=== PATIENT | female | born 2000 | race Caucasian/White ===

== ENCOUNTER 2024-07-19 03:18 | Emergency (ER) | payer OTHER ==
[~2024-07-19] VITALS: Ht 157.5 cm; Wt 129.6 kg
[2024-07-19 03:48] VITALS: O2SAT 98
[2024-07-19 03:51] LABS: HEMATOCRIT. 42.3 % (36.0-48.0); HEMOGLOBIN. 13.9 g/dL (12.0-16.0); MEAN CORPUSCULAR HEMOGLOBIN 28.5 pg (28.0-32.0); MEAN CORPUSCULAR HGB CONC 32.9 g/dL (31.0-37.0); MEAN CORPUSCULAR VOLUME 86.7 fL (81.0-99.0); MEAN PLATELET VOLUME 10.4 fl (7.4-10.4); PLATELET 348 x1000/uL (130-400); RED BLOOD CELL COUNT 4.88 mill/uL (4.2-5.4); RED CELL DISTRIBUTION WIDTH 13.8 % (11.6-14.6); WHITE BLOOD COUNT 14.3 x1000/uL (4.5-11.0)
[2024-07-19] MEDS: SODIUM CHLORIDE 0.9% 1,000 ML IV ONE (03:53)
[2024-07-19] MEDS: METOCLOPRAMIDE HCL 10MG/2ML VIAL IV ONE (03:53)
[2024-07-19] MEDS: DIPHENHYDRAMINE 50MG/ML VIAL IV ONE (03:53)
[2024-07-19] MEDS: ACETAMINOPHEN 1000MG/100ML 100 ML IV ONE (03:57)
[2024-07-19 03:59] LABS: CHLORIDE 107 mEq/L (98-107); SODIUM 139 mEq/L (136-145)
[2024-07-19 04:00] LABS: CALCIUM 9.2 mg/dL (8.7-10.4); CARBON DIOXIDE 26 mEq/L (21-32)
[2024-07-19 04:05] LABS: CREATININE 0.6 mg/dL (0.6-1.0); GLUCOSE 162 mg/dL (70-105); UREA NITROGEN BLOOD 8 mg/dL (9-23)
[2024-07-19 04:07] LABS: ALANINE AMINOTRANSFERASE 259 IU/L (10-49); ALBUMIN 4.3 g/dL (3.2-4.8); ASPARTATE AMINOTRANSFERASE 312 IU/L (<34); BILIRUBIN DIRECT 1.7 mg/dL (<=3.0); BILIRUBIN TOTAL 2.6 mg/dL (0.1-1.0)
[2024-07-19 04:08] LABS: PROTEIN TOTAL 7.4 g/dL (6.0-8.3)
[2024-07-19 04:17] LABS: ETHANOL BLOOD < 10 mg/dL (<10)
[2024-07-19 04:22] LABS: DIFFERENTIAL COMMENT 1
[2024-07-19 04:33] LABS: INR 0.9; PROTHROMBIN TIME 10.5 sec (9.6-11.0)
[2024-07-19] MEDS: MORPHINE SULFATE 4 MG/ML INJ (FOR IV/IM USE) IV ONE ×2 (05:05→10:36)
[2024-07-19] MEDS: SODIUM CHLORIDE 0.9% (SEPSIS BOLUS) IV ONE (05:43)
[2024-07-19 05:53] LABS: CLARITY URINE CLOUDY (CLEAR); COLOR URINE DARK YELLOW (YELLOW); GLUCOSE URINE NEGATIVE (NEGATIVE); KETONES URINE 2+ (NEGATIVE); LEUKOCYTE ESTERASE URINE TRACE (NEGATIVE); NITRITE URINE NEGATIVE (NEGATIVE); OCCULT BLOOD URINE NEGATIVE (NEGATIVE); PH URINE 5.5 (4.5-8.0); PROTEIN URINE 1+ (NEGATIVE); SPECIFIC GRAVITY URINE 1.031 (1.005-1.030)
[2024-07-19 06:04] LABS: *AMPHETAMINES SCREEN URINE NEGATIVE (NEGATIVE); *BARBITURATES SCREEN URINE NEGATIVE (NEGATIVE); *BENZODIAZEPINES SCREEN URINE NEGATIVE (NEGATIVE); *COCAINE SCREEN URINE NEGATIVE (NEGATIVE); METHADONE URINE SCREEN NEGATIVE (NEGATIVE); OPIATES URINE SCREEN NEGATIVE (NEGATIVE); PHENCYCLIDINE URINE SCREEN NEGATIVE (NEGATIVE)
[2024-07-19 06:05] LABS: CANNABINOID URINE SCREEN NEGATIVE (NEGATIVE); ECSTASY MDMA SCREEN URINE NEGATIVE (NEGATIVE)
[2024-07-19] MEDS: CEFTRIAXONE 1GM/50ML 50 ML IV NR (06:13)
[2024-07-19] MEDS: VANCOMYCIN 1G PREMIX 200 ML IV NR (06:27)
[2024-07-19 06:33] LABS: HCG SCREEN NEGATIVE
[2024-07-19 08:03] LABS: AMORPHOUS SEDIMENT URINE 3+ /lpf; BACTERIA URINE NONE SEEN; RBC URINE 0-2 /hpf (0-2); SQUAMOUS EPITHELIAL CELL URINE 1+ /lpf (RARE/1+); WBC URINE 0-2 /hpf (0-2); YEAST URINE NONE SEEN
[2024-07-19 10:28] VITALS: TEMP 36.89184; O2SAT 98
[2024-07-19 10:36] VITALS: BP 127/80; PULSE 70; RESP 20
[2024-07-19] MEDS: ONDANSETRON HCL 4MG/2ML INJ IV ONE (10:36)
[2024-07-19 12:26] LABS: PLATELET ESTIMATE NORMAL
== END 2024-07-19 10:50 | disposition short-term general hospital (02) ==
LOC: ER 03:18
DX: A41.9 Sepsis, unspecified organism (principal); R65.20 Severe sepsis without septic shock; K80.50 Calculus of bile duct without cholangitis or cholecystitis without obstruction; G44.209 Tension-type headache, unspecified, not intractable; I10 Essential (primary) hypertension; Z20.822 Contact with and (suspected) exposure to COVID-19
CPT/HCPCS: 80076; 80305; 80048; 81003; 80320; 84703; 83605; 83690; 85025; 85610; 87040; 87086; 36415; 84145; 70450; 74176; 76705; 74181; 96368; 96361; 96365; 96375; 96376; 99291; 87426; J0696; J1200; J2765; J2405; J3370; J2270; J7030; G0480; J0131